=== PATIENT | male | born 1985 | race American Indian/Alaskan Native ===

== ENCOUNTER 2018-02-05 01:33 | Emergency (ER) | payer OTHER ==
[2018-02-05 01:45] VITALS: BP 120/69
[2018-02-05] MEDS ORDERED: MOTRIN PO ONE (04:20)
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
== END 2018-02-05 04:34 | disposition home or self-care (01) ==
LOC: ED 01:33
DX: R10.9 Unspecified abdominal pain (principal); V89.2XXA Person injured in unspecified motor-vehicle accident, traffic, initial encounter; Y93.89 Activity, other specified; Y92.411 Interstate highway as the place of occurrence of the external cause; Y99.8 Other external cause status
CPT/HCPCS: 99282